=== PATIENT | male | born 1935 | race Caucasian/White ===

== ENCOUNTER 2017-09-20 12:25 | Emergency (ER) | payer MEDICARE, OTHER ==
[2017-09-20 14:17] VITALS: BP 149/76
--- NOTE | 2017-09-21 06:09 | ED ---
Throat Pain/Nasal Congestion - HPI Summary HPI Summary: Patient is an 81-year-old male who presents to ED with chief complaint of left eye erythematous injection, burning, tearing and was closed shut this morning upon awakening. Denies any sick contacts. He states he was recently ill with a short course of a URI. There is no copious drainage today, but has been tearing. Denies any right eye symptoms. He has had conjunctivitis in the past but many years ago. Denies any other symptoms including shortness of breath or chest pain. Denies any sinus pressure or headache. He denies any known allergies and does not take a allergy medication regularly. Denies any trauma to the eye and denies any pain to the eye other than a burning sensation. Pain is not worse with closing or opening the lid. There is no erythema around the eye. - History of Current Complaint Chief Complaint: EDEyeProblem Time Seen by Provider: 09/20/17 13:18 Hx Obtained From: Patient Onset/Duration: Sudden Onset Severity: Mild - Epiglottits Risk Factors Epiglottis Risk Factors: Negative - Allergies/Home Medications Allergies/Adverse Reactions: Allergies Allergy/AdvReac Type Severity Reaction Status Date / Time dicyclomine [From Bentyl] Allergy Hallucinati Verified 09/20/17 13:36 ons Home Medications: Home Medications Levothyroxine TAB* [Synthroid TAB*] 88 mcg PO 0800 09/20/17 [History Confirmed 09/20/17] Lovastatin [Altoprev] 20 mg PO DAILY 09/20/17 [History Confirmed 09/20/17] Omeprazole CAP* [Prilosec CAP* 20 MG] 20 mg PO DAILY 09/20/17 [History Confirmed 09/20/17] Quinapril HCl 20 mg PO DAILY 09/20/17 [History Confirmed 09/20/17] PMH/Surg Hx/FS Hx/Imm Hx Previously Healthy: Yes - Immunization History Hx Pertussis Vaccination: No Immunizations Up to Date: Unable to Obtain/Confirm Infectious Disease History: No Infectious Disease History: Denies: Traveled Outside the [place] in Last 30 Days - Social History Occupation: Unemployed, Retired Lives: With Family Alcohol Use: Occasionally Hx Substance Use: No Substance Use Type: Reports: None Hx Tobacco Use: Yes Smoking Status (MU): Former Smoker Review of Systems Constitutional: Negative Negative: Fever, Chills, Fatigue Positive: Drainage, Erythema. Negative: Photophobia, Blurred Vision, Diplopia ENT: Negative Cardiovascular: Negative Musculoskeletal: Negative Skin: Negative Negative: Headache, Weakness, Paresthesia Negative: Anxious, Depressed All Other Systems Reviewed And Are Negative: Yes Physical Exam Triage Information Reviewed: Yes Vital Signs On Initial Exam: Initial Vitals Temp Pulse Resp BP Pulse Ox 97.5 F 58 14 139/62 95 09/20/17 12:55 09/20/17 12:55 09/20/17 12:55 09/20/17 12:55 09/20/17 12:55 Vital Signs Reviewed: Yes Appearance: Positive: Well-Appearing, Well-Nourished Skin: Positive: Skin Color Reflects Adequate Perfusion Eyes: Positive: EOMI, SYDNEE, Conjunctiva Inflammed - injected and tearing (L) eye only ENT: Positive: Hearing grossly normal Neck: Positive: Nontender Respiratory/Lung Sounds: Positive: Breath Sounds Present Cardiovascular: Positive: Normal Musculoskeletal: Positive: Normal Neurological: Positive: Normal Psychiatric: Positive: Affect/Mood Appropriate AVPU Assessment: Alert Diagnostics - Vital Signs Vital Signs Temp Pulse Resp BP Pulse Ox 09/20/17 14:16 97.6 F 66 16 149/76 97 09/20/17 12:55 97.5 F 58 14 139/62 95 - Laboratory Lab Statement: Any lab studies that have been ordered have been reviewed, and results considered in the medical decision making process. EENT Course/Dx - Course Course Of Treatment: Patient is evaluated for left eye conjunctival injection, watering and burning sensation. This appears to be a conjunctivitis. This is likely a conjunctivitis based on symptoms and physical exam. Patient is given antibiotic drops and is educated how to use these. He is encouraged to wash hands frequently and will return to the ED for any worsening symptoms. He is otherwise asymptomatic. - Differential Diagnoses Differential Diagnoses: Conjunctivitis - Diagnoses Provider Diagnoses: Conjunctivitis Discharge - Sign-Out/Discharge Documenting (check all that apply): Discharge/Admit/Transfer - Discharge Plan Condition: Stable Disposition: HOME Prescriptions: Polymyx/Trimethoprim OPTH* [Polytrim OPHTH*] 1 drop LEFT EYE Q3H #1 btl Patient Education Materials: Conjunctivitis (ED) Referrals: No Primary Care Phys,NOPCP [Primary Care Provider] - Additional Instructions: Over the counter allergy medication Eye drops: 1 to 2 drops four times daily for 5 to 7 days Cold compresses to the eye Wash hands frequently - Billing Disposition and Condition Condition: STABLE Disposition: HOME
== END 2017-09-20 14:16 | disposition home or self-care (01) ==
LOC: ED 12:25
DX: H10.9 Unspecified conjunctivitis (principal); Z87.891 Personal history of nicotine dependence; Z88.8 Allergy status to other drugs, medicaments and biological substances
CPT/HCPCS: 99282